=== PATIENT | female | born 1940 | race Caucasian/White ===

== ENCOUNTER 2021-05-30 11:38 | Emergency (ER) | payer MEDICARE, OTHER ==
[~2021-05-30] VITALS: Ht 154.9 cm; Wt 72.6 kg
[~2021-05-30 11:38] MED LIST: ACID CONTROLLER20 MG PO; AMLODIPINE BESYL5 MG PO; DICLOFENAC SODI75 MG PO; HYDROCHLOROTHIA25 MG PO; LIPITOR20 MG; LYRICA100 MG PO; METOPROLOL SUC100 MG PO; PLAVIX75 MG PO
[2021-05-30] MEDS ORDERED: K-TAB ER20 MEQ PO (12:03)
[2021-05-30] MEDS ORDERED: VENTOLIN HFA18 GM INH (12:03)
[2021-05-30] MEDS ORDERED: INDAPAMIDE (12:05)
[2021-05-30] MEDS ORDERED: NITROSTAT0.4 MG SL (12:05)
[2021-05-30] MEDS ORDERED: METFORMIN HCL1000 M1 PO (12:06)
[2021-05-30] MEDS ORDERED: VITAMIN D3125 MC2 PO (12:07)
[2021-05-30] MEDS ORDERED: LIPITOR40 MG PO (12:07)
[2021-05-30] MEDS ORDERED: TORSEMIDE10 MG PO (14:49)
--- NOTE | 2021-05-30 18:44 | EKG ---
[facility] [address] [facility] [place], [place] [address] Signed Normal sinus rhythm Left ventricular hypertrophy with repolarization abnormality Anteroseptal infarct , age undetermined Abnormal ECG No previous ECGs available Confirmed by MIGUEL ANGEL PLAZA DO ([id number]) on 05/30/2021 6:44:33 PM Electronically Signed By: MIGUEL ANGEL PLAZA DO 05/30/21 1844 PATIENT NAME: ADELE GOMES Electrocardiogram DATE OF : 42 PHYSICIAN: MIGUEL ANGEL PLAZA DO REPORT #: [id number] REPORT IS CONFIDENTIAL AND NOT TO BE RELEASED WITHOUT AUTHORIZATION
== END 2021-05-30 15:20 | disposition home or self-care (01) ==
LOC: ED 11:38
DX: I50.9 Heart failure, unspecified (principal); F17.200 Nicotine dependence, unspecified, uncomplicated; Z88.1 Allergy status to other antibiotic agents; Z88.8 Allergy status to other drugs, medicaments and biological substances; Z88.0 Allergy status to penicillin; Z79.899 Other long term (current) drug therapy; Z79.84 Long term (current) use of oral hypoglycemic drugs
CPT/HCPCS: 71045; 80053; 84484; 85025; 93005; 93010; 94640; 96374; 99285-25; J1940

== ENCOUNTER 2021-12-20 14:50 | Emergency (ER) | payer MEDICARE, OTHER ==
[~2021-12-20] VITALS: Ht 154.9 cm; Wt 69.8 kg
[~2021-12-20 14:50] MED LIST changes: +INDAPAMIDE; +K-TAB ER20 MEQ PO; +LIPITOR40 MG PO; +METFORMIN HCL1000 M1 PO; +NITROSTAT0.4 MG SL; +TORSEMIDE10 MG PO; +VENTOLIN HFA18 GM INH; +VITAMIN D3125 MC2 PO
--- NOTE | 2021-12-21 07:22 | EKG ---
[facility] [address] [place], [place] [address] Signed Sinus tachycardia Minimal voltage criteria for LVH, may be normal variant ( Sokolow-Chavez ) Anteroseptal infarct (cited on or before 30-MAY-2021) Abnormal ECG When compared with ECG of 30-MAY-2021 11:43, Questionable change in initial forces of Anterior leads Nonspecific T wave abnormality, worse in Inferior leads Confirmed by MIC LUNDY MD ([id number]) on 12/21/2021 7:22:25 AM Electronically Signed By: MIC LUNDY MD 12/21/21721 PATIENT NAME: ADELE GOMES Electrocardiogram DATE OF : 42 PHYSICIAN: MIC LUNDY MD REPORT #: [id number] REPORT IS CONFIDENTIAL AND NOT TO BE RELEASED WITHOUT AUTHORIZATION
== END 2021-12-20 17:20 | disposition home or self-care (01) ==
LOC: ED 14:50
DX: R07.9 Chest pain, unspecified (principal); I50.9 Heart failure, unspecified; Z87.891 Personal history of nicotine dependence; Z88.1 Allergy status to other antibiotic agents; Z88.8 Allergy status to other drugs, medicaments and biological substances; Z79.899 Other long term (current) drug therapy; Z79.84 Long term (current) use of oral hypoglycemic drugs
CPT/HCPCS: 36415; 71045; 80053; 83735; 84484; 85025; 93005; 93010; 99285-25

== ENCOUNTER 2022-08-25 11:15 | Inpatient (IN) | payer MEDICARE, OTHER ==
[~2022-08-25] VITALS: Ht 154.9 cm; Wt 71.0 kg
[~2022-08-25 11:15] MED LIST changes: -ACID CONTROLLER20 MG PO; -K-TAB ER20 MEQ PO; +K-TAB10 MEQ PO; +PEPCID AC10 MG PO
[2022-08-25] MEDS ORDERED: ADULT LOW DOSE81 MG PO (11:29)
[2022-08-25] MEDS ORDERED: DICLOFENAC SODI75 MG PO (11:31)
[2022-08-25] MEDS ORDERED: CYCLOBENZAPRINE10 MG PO (11:31)
[2022-08-25] MEDS ORDERED: METOPROLOL SUCC50 MG PO (16:04)
[2022-08-25] MEDS ORDERED: FUROSEMIDE20 MG PO (16:04)
[2022-08-25] MEDS ORDERED: METFORMIN HCL500 M1 PO (16:05)
[2022-08-25] MEDS ORDERED: INDAPAMIDE1.25 MG PO (16:05)
--- NOTE | 2022-08-25 16:57 | EKG ---
[facility] [address] [facility] [place] [address] Signed Sinus rhythm with occasional premature ventricular complexes Left ventricular hypertrophy with repolarization abnormality ( Sokolow-Chavez ) Abnormal ECG When compared with ECG of 20-DEC-2021 14:58, premature ventricular complexes are now present Criteria for Anteroseptal infarct are no longer present Confirmed by Keri Lynch MD () on 08/25/2022 4:56:48 PM Electronically Signed By: KERI LYNCH MD 08/25/22 1657 PATIENT NAME: ADELE GOMES Electrocardiogram DATE OF : 42 PHYSICIAN: KERI LYNCH MD REPORT #: [id number] REPORT IS CONFIDENTIAL AND NOT TO BE RELEASED WITHOUT AUTHORIZATION
--- NOTE | 2022-08-25 17:11 | NUR ---
PT ARRIVED FROM ER, SBA TO BSC, VOIDED WITHOUT DIFFICULTY. PT ON 2L NC CHRONIC, LUNG SOUNDS WITH RHONCHI AND WHEEZE THROUGHOUT, PRODUCTIVE COUGH. PT PLACED ON TELE #4, SINUS TACH. IV SALINE LOCKED, FLUSHED, PATENT. CMS INTACT, TRACE EDEMA TO BLE. PT BLOOD GLUCOSE 201, GIVEN 3 UNITS SS INSULIN, DINNER AT BEDSIDE. ADMISSION INTAKE COMPLETED. PT DENIES OTHER NEEDS AT THIS TIME.
--- NOTE | 2022-08-25 18:56 | NUR ---
PT ASSISTED TO BATHROOM AND BACK TO BED. SON AT BEDSIDE. PT DENIES OTHER NEEDS AT THIS TIME.
--- NOTE | 2022-08-25 19:20 | NUR ---
IN PT ROOM FOR SHIFT REPORT. PT A&O X4, ABLE TO MAKE NEEDS KNOWN. PT HAS NO COMPLAINTS OF PAIN OR DISCOMFORT AT THIS TIME. PT CALL LIGHT IN REACH.
--- NOTE | 2022-08-25 20:55 | NUR ---
IN PT ROOM FOR BLOOD DRAW DUE TO LAB BEING UNAVAILABLE. PT RESTING, COMPLIANT WITH BLOOD DRAW. PT RESTING, HEAD ELEVATED, NO COMPLAINT OF PAIN. CALL LIGHT INREACH.
--- NOTE | 2022-08-25 22:28 | NUR ---
CALL LIGHT ANSWERED. PT UP TO BR WITH PERSONAL WALKER AND SBA TO VOID. GAIT STEADY. BACK TO BED, PT WILFRID WELL. DENIES SOB WITH AMB. SpO2 100% ON 2L/NC. HR 90'S. PT C/O DRY NOSE. HUMIDIFIER ADDED TO OXYGEN. NO FURTHER NEEDS. CALL LIGHT IN REACH.
--- NOTE | 2022-08-25 23:12 | NUR ---
IN PT ROOM FOR ROUNDING. PT LAYING ON SIDE, APPEARS TO BE SLEEPING. PT BREATHING EVEN, UNLABORED. PT CALL LIGHT IN REACH, NO SIGN OF PAIN OR DISCOMFORT.
--- NOTE | 2022-08-26 00:27 | NUR ---
IN PT ROOM FOR ROUNDING. PT RESTING ON SIDE, APPEARS TO BE SLEEPING. PT BREATHING IS EVEN AND UNLABORED, NO SIGN OF DISTRESS OR DISCOMFORT. PT CALL LIGHT IN REACH.
--- NOTE | 2022-08-26 01:25 | NUR ---
IN PT ROOM FOR BLOOD DRAW AND ROUNDING. PT RESTING, COMPLIANT WITH BLOOD DRAW AND VITAL SIGNS. PT NOT COMPLAINING OF SOB, O2 SAT AT 98%. PT HAS NO COMPLAINT OF PAIN, CALL LIGHT IN REACH.
--- NOTE | 2022-08-26 01:29 | NUR ---
IN PT ROOM FOR ROUNDING. PT RESTING ON RIGHT SIDE, BREATHING EVEN AND UNLABORED. PT IS NOT SHOWING ANY INDICATIONS OF PAIN OR DISCOMFORT, PT CALL LIGHT IS IN REACH.
--- NOTE | 2022-08-26 02:20 | NUR ---
IN PT ROOM TO REAPPLY TELEMETRY MNODES. PT COMPLIANT, NODES REPLACED, PT ASSISTED TO BATHROOM WITHOUT INCIDENT. PT CALL LIGHT IN REACH, NO COMPLAINT OF PAIN OR DISCOMFORT.
--- NOTE | 2022-08-26 03:46 | NUR ---
IN PT ROOM FOR ROUNDING. PT RESTING, EYES CLOSED, ON LEFT SIDE. PT BREATHING IS EVEN AND UNLABORED. PT SHOWS NO SIGNS OF PAIN OR DISCOMFORT. CALL LIGHT IN REACH
--- NOTE | 2022-08-26 04:58 | NUR ---
IN PT ROOM FOR ROUNDING. PT RESTING ON SIDE, NO SIGNS OF DISTRESS, BREATHING EVEN AND UNLABORED. PT TELEMETRY ON, CALL LIGHT IN REACH.
--- NOTE | 2022-08-26 06:07 | NUR ---
IN PT ROOM FOR ROUNDING, VS, WEIGHT, AND I&O'S. PT IN GOOD SPIRITS, STATES SHE IS "FEELING BETTER" - PT NOTES THAT PRODUCTIVE COUGH CREATES YELLOW SPUTUM OPPOSED TO BROWN PREVIOUSLY. PT HAS NO COMPLAINT OF PAIN OR SOB, CALL LIGHT IN REACH
--- NOTE | 2022-08-26 07:00 | NUR ---
bedside report from dudley springer, daily weight complete, tele 4 sr hr 80, call light in reach
--- NOTE | 2022-08-26 07:59 | NUR ---
PATIENT UP SITTING ON SIDE OF BED FOR MEAL. AM CARE COMPLETED AND ICE WATER GIVEN. PT HAS NO OTHER NEEDS AT THIS TIME. CALL LIGHT WITHIN REACH.
--- NOTE | 2022-08-26 09:44 | NUR ---
PATIENT IN BED AFTER MEAL. VITALS AND I/O'S COMPLETED. PT HAS NO OTHER NEEDS AT THIS TIME. CALL LIGHT WITHIN REACH.
--- NOTE | 2022-08-26 09:58 | NUR ---
IN ROOM WITH DR LYNCH FOR ROUNDS WITH PT.
--- NOTE | 2022-08-26 10:37 | NUR ---
MED REC COMPLETE. PT STATES ALBUTEROL MDI DOESN'T SEEEM TO WORK. A SPACER MAY BENEFIT THIS PT.
[2022-08-26] MEDS ORDERED: TYLENOL325 MG PO (10:47)
[2022-08-26] MEDS ORDERED: METAMUCIL POWD575 GM PO (10:48)
--- NOTE | 2022-08-26 12:50 | NUR ---
iv left side infilterated, dc intact. call to it service continuity supervisor to restart due to pt complaint of difficult iv/lab draw experinces last night. pt reports she is a very hard stick and they had trouble last night.
--- NOTE | 2022-08-26 14:41 | NUR ---
PATIENT SITTING UP ON SIDE OF BED. FAMILY IN ROOM. VITALS AND I/O'S COMPLETED, PT HAS NO OTHER NEEDS AT THIS TIME. CALL LIGHT WITHIN REACH.
--- NOTE | 2022-08-26 15:11 | NUR ---
this rn visited with dr narayanan in person about hr 110 on tele and updated on pt status.
--- NOTE | 2022-08-26 16:00 | NUR ---
THIS RN TRINH LAB FROM IV PER PT REQUEST WITH LAB PRESENT, WASTED BEFORE DRAW AND PULSATED FLUSH AFTER. RESULTS TO CHART - NOTE TO
--- NOTE | 2022-08-26 17:45 | NUR ---
PT ATE DINNER WELL DENIES NEEDS - AWARE OF CHANGE OF SHIFT 7-730 PM AND WILL INTRO NEW RN, THIS RN CALLED CASE MANAGMENT LEFT MESSAGE FOR PT REQUEST WITH HELP ON ADVANCE DIRECTIVE AND NEED FOR A NOTERY, PER PT REQUEST.
--- NOTE | 2022-08-26 17:50 | NUR ---
PATIENT SITTING ON SIDE OF BED. VITALS AND I/O'S COMPLETED. ICE WATER GIVEN. PT HAS NO OTHER NEEDS AT THIS TIME. CALL LIGHT WITHIN REACH.
--- NOTE | 2022-08-26 20:32 | NUR ---
PT ON 2LNC, CHRONIC AT HOME, MOIST PRODUCTIV E COUGH PRESENT, UP TO BR, DID OWN CARE, VOIDED, BACK TO BED, C/O CONSTIPATION, NIO FOR BOWEL REGIMEN STATRTED. PT STAES SHE RATHER JUST HAVE THE MIRALAX SHE TAKES METAMUCIL AT HOME WHICH SHE PREFERS BUT IS CURRENTLY UNAVAILABLE AT THIS TIME OF NIGHT. STATED MIRALAX IS JUST FINE. TELE#[address] TACHYCHARDIC, DENIES CP, SLIGHT SOB WITH EXERTION AND INCREAED TACHYCHARDIA NOTED WHEN UP TO BR AND DOING OWN SELF CARE. AMBULATIN IN ROOM INDEPENDENT. USES CALL LIGHT, TOLERATING LIQUIDS WELL, NO C.O N/V. CBG 173 WILL RECEIVE 1 UNITS INSULIN
--- NOTE | 2022-08-26 21:39 | NUR ---
c/o back of head pain.stiffness from laying down. medicated with Tylenol 650mg pt received Toprol and Lipitor, med ed done, pt states this are meds she takes at home, semireceptive for med teaching. Repositions self in bed Tele#[address], tachychardic at 121 at this time denies CP
--- NOTE | 2022-08-26 22:49 | NUR ---
PT 2LNC, TELE#[address], EYES CLOSED, NO DISTRESS, TURNS AND REPOSITIONS SELF IN BED, PULSE 95, RESP 16 AT THIS TIME
--- NOTE | 2022-08-27 01:18 | NUR ---
Pt sitting edge of bed, O2 2LNC inplace, denies sob or CP. tele#[address] SR w SVPB's. ambulated to br and back to sitting position in bed. pulse 84. call light and fluids at hands reach
--- NOTE | 2022-08-27 02:34 | NUR ---
Pt awake, walking in room, denies sob or CP, tele#[address] SR w SVPB's O2 2LNC. moving from bed to chair and back, tolerating well, fresh fluids given. legs dependent position . c/o edema to LE specially L leg. trace edema ankles to feet noted. encouraged to elevate legs. "I have not slept much tonight, Leif worried about my dog, the person who was suppossed to take care of him did not, so I had words with that person". listened to her and reassured. calmer. Coop with assessments
--- NOTE | 2022-08-27 04:41 | NUR ---
Pt has been awake off and on this shift, independent in room, voiding small amunts of urine, no bm this shift. On 2LNC, chronic use, sats WNL. Lungs dim at bases were coarse at begiining of shift. moist occassionally productive cough present. tele#[address] initial rhythm was ST/SVPB's, received Toprol as per orders, current rhythm SR w occassional SVPB's, denies c/o cp or SOB no sob noted with exertion, ambulating in room. independent. pleasant and cooperative. Very anxious at begining of shift, resolved. Ultrasound guided SL QIAN patent. bruising arms from old iv sites. tolerating liquids well. CBG w ss insulin.
--- NOTE | 2022-08-27 07:30 | NUR ---
THIS RN RECEIVED SHIFT REPORT FROM HARDY MONTENEGRO. PATIENT SITTING ON THE EDGE OF HER BED QUIETLY LOOKING OUT THE WINDOW. PATIENT HAS NO NURSE CARE NEEDS AT THIS TIME. CALL LIGHT IS IN REACH.
--- NOTE | 2022-08-27 07:30 | NUR ---
THIS RN RECEIVED SHIFT REPORT FROM HARDY MONTENEGRO. PATIENT RESTING QUIETLY IN BED, RESPIRATIONS ARE REGULAR AND EVEN, AND CALL LIGHT IS IN REACH. PATIENT HAS NO NURSE CARE NEEDS AT THIS TIME.
--- NOTE | 2022-08-27 07:32 | NUR ---
PT SITTING AT EDGE OF BED. BS TAKEN. RN NOTIFIED. I ASKED PT IF SHE WANTED ASSISTANCE TO THE CHAIR AND SHE DECLINED. NO FURTHER NEEDS. CALL LIGHT WITHIN REACH.
--- NOTE | 2022-08-27 08:40 | NUR ---
THIS RN IN TO SEE PATIENT AND AM ASSESSMENT COMPLETE. LUNGS ARE COARSE THROUGHOUT WITH EXP WHEEZES IN THE BILAT BASES. FLEXARIL PRN GIVEN FOR BACK SPASMS. PATIENT CONTINUES TO EAT BREAKFAST AND JUST CAME IN TO TALK TO PATIENT. PATIENT HAS NO OTHER CARE NEEDS AT THIS TIME. CALL LIGHT IS IN REACH.
--- NOTE | 2022-08-27 09:09 | NUR ---
PT SITTING UP IN BED. VITALS AND IS AND OS COMPLETE. NO FURTHER NEEDS. CALL LIGHT WITHIN REACH.
[2022-08-27] MEDS ORDERED: CEFDINIR300 MG PO (13:57)
[2022-08-27] MEDS ORDERED: BENZONATATE200 MG PO (13:58)
[2022-08-27] MEDS ORDERED: AEROCHAMBER MV1 EACH MISC (14:39)
--- NOTE | 2022-08-27 14:48 | NUR ---
PATIENT DC'D TO HOME IN DAUGHTERS CARE. IV DC'D INTACT. FLU SHOT GIVEN. VS STABLE. PATIENT LEFT ON HER HOME PORTABLE O2 AT 2L/NC. PATIENT AND DAUGHTER VERBALIZED UNDERSTANDING TO ALL, DC, F/U, MEDICATION, AND HOME CARE INSTRUCTIONS. PHARMACY WENT OVER MEDS AND GOT PATIENT A SPACER FOR HER INHALER. JAVY WEI TOOK PATIENT OUT TO DAUGHTERS CAR IN , BUT PATIENT IS AMBULATORY WITH WALKER.
== END 2022-08-27 14:48 | disposition home or self-care (01) | DRG 871 ==
LOC: ED 11:15 → MS 15:27
PROVIDERS: ADMIT Family Medicine; ATTEND Family Medicine
DX: A41.9 Sepsis, unspecified organism (principal); J13 Pneumonia due to Streptococcus pneumoniae; J96.01 Acute respiratory failure with hypoxia; E87.1 Hypo-osmolality and hyponatremia; Z20.822 Contact with and (suspected) exposure to COVID-19; R65.20 Severe sepsis without septic shock; E11.9 Type 2 diabetes mellitus without complications; R79.89 Other specified abnormal findings of blood chemistry; I50.9 Heart failure, unspecified; M85.80 Other specified disorders of bone density and structure, unspecified site; Z87.891 Personal history of nicotine dependence; Z90.10 Acquired absence of unspecified breast and nipple; Z98.1 Arthrodesis status; Z88.1 Allergy status to other antibiotic agents; Z88.8 Allergy status to other drugs, medicaments and biological substances; Z79.82 Long term (current) use of aspirin; Z79.84 Long term (current) use of oral hypoglycemic drugs; Z79.899 Other long term (current) drug therapy
CPT/HCPCS: 36415; 71045; 80048; 80053; 81001; 83605; 83735; 83880; 84300; 84484; 85025; 85060; 87449; 87899; 93005; 93010; 94640; 96374; 96375; 99285-25; A9270; C9803; J0456; J0696; J1100; J1650; J1815; J1940; J7030; J7060; U0003

== ENCOUNTER 2023-10-11 15:14 | Emergency (ER) | payer MEDICARE, OTHER ==
[~2023-10-11] VITALS: Ht 152.4 cm; Wt 70.6 kg
[~2023-10-11 15:14] MED LIST changes: +ADULT LOW DOSE81 MG PO; +AEROCHAMBER MV1 EACH MISC; +BENZONATATE200 MG PO; +CEFDINIR300 MG PO; +CYCLOBENZAPRINE10 MG PO; +FUROSEMIDE20 MG PO; +GABAPENTIN100 MG PO; +INDAPAMIDE1.25 MG PO; +METAMUCIL POWD575 GM PO; +METFORMIN HCL500 M1 PO; +METOPROLOL SUCC50 MG PO; +TYLENOL325 MG PO
[2023-10-11 16:00] LABS: BASOPHILS 0.6 % (0-2); EOSINOPHILS 0.9 % (0-6); HEMATOCRIT 37.7 % (35.0-50.0); HEMOGLOBIN 12.4 g/dL (12.0-18.0); LYMPHOCYTES 6.1 % (24-44); MCH 30.2 (27-36); MCHC 32.9 g/dl (30-36); MCV 91.9 fl (81-99); MONOCYTES 5.5 % (0-12); NEUTROPHILS 86.9 % (39-80); PLATELET COUNT 187 K/uL (140-440); RDW 17.3 (10.5-15.0)
[2023-10-11 16:21] LABS: ALBUMIN 3.6 g/dL (3.4-5.0); ALBUMIN/GLOBULIN RATIO 1.09 (1.1-2.4); ANION GAP 15.3 (7-21); BILIRUBIN, TOTAL 0.5 ng/dL (0.2-1.0); BUN/CREATININE RATIO 20.68 (6.0-28.6); CALCIUM 9.6 mg/dL (8.5-10.1); CREATININE, SERUM 1.74 mg/dL (0.55-1.02); POTASSIUM 4.3 mmol/L (3.5-5.1); PROTEIN, TOTAL 6.9 g/dL (6.4-8.2)
--- NOTE | 2023-10-11 17:40 | EKG ---
[facility] [address] [facility] [place] [address] Signed Normal sinus rhythm Left ventricular hypertrophy with repolarization abnormality ( Sokolow-Chavez , [place] product ) Cannot rule out Septal infarct , age undetermined Abnormal ECG When compared with ECG of 15-JUN-2023 11:43, IA interval has decreased Confirmed by NICOLAS LIAO MD ([id number]) on 10/11/2023 5:40:17 PM Electronically Signed By: NICOLAS LIAO 10/11/23 1740 PATIENT NAME: ADELE GOMES Electrocardiogram DATE OF : 42 PHYSICIAN: NICOLAS LIAO REPORT #: [id number] REPORT IS CONFIDENTIAL AND NOT TO BE RELEASED WITHOUT AUTHORIZATION
[2023-10-11 18:49] VITALS: BP 89/52
== END 2023-10-11 18:49 | disposition home or self-care (01) ==
LOC: ED 15:14
PROVIDERS: Emergency Medicine
DX: R55 Syncope and collapse (principal); I50.9 Heart failure, unspecified; J44.9 Chronic obstructive pulmonary disease, unspecified; Z87.891 Personal history of nicotine dependence; Z88.1 Allergy status to other antibiotic agents; Z88.8 Allergy status to other drugs, medicaments and biological substances; Z79.02 Long term (current) use of antithrombotics/antiplatelets; Z79.82 Long term (current) use of aspirin; Z79.84 Long term (current) use of oral hypoglycemic drugs; Z79.899 Other long term (current) drug therapy
CPT/HCPCS: 36415; 71045; 80053; 83735; 84484; 85025; 93005; 93010; 99285-25

== ENCOUNTER 2024-05-07 17:31 | Emergency (ER) | payer MEDICARE, OTHER ==
[~2024-05-07 17:31] MED LIST changes: +CARVEDILOL12.5 MG PO; +DOXYCYCLINE HY100 MG PO; +FAMOTIDINE10 MG PO; +POTASSIUM CHLO10 MEQ PO
[2024-05-07] MEDS ORDERED: FAMOTIDINE 20 MG/ 2 ML VIAL IV ONE (19:00)
[2024-05-07 19:07] LABS: BASOPHILS 0.1 % (0-2); EOSINOPHILS 0.1 % (0-6); HEMATOCRIT 35.7 % (35.0-50.0); HEMOGLOBIN 11.1 g/dL (12.0-18.0); LYMPHOCYTES 1.7 % (24-44); MCH 26.2 (27-36); MCHC 31.1 g/dl (30-36); MCV 84.4 fl (81-99); MONOCYTES 2.9 % (0-12); NEUTROPHILS 95.2 % (39-80); PLATELET COUNT 144 K/uL (140-440); RBC 4.23 M/ul (4.3-5.7); RDW 23.6 (10.5-15.0)
[2024-05-07 19:30] LABS: ALBUMIN 2.7 g/dL (3.4-5.0); ALBUMIN/GLOBULIN RATIO 0.69 (1.1-2.4); BILIRUBIN, TOTAL 0.8 ng/dL (0.2-1.0); BUN/CREATININE RATIO 26.31 (6.0-28.6); CALCIUM 9.8 mg/dL (8.5-10.1); CREATININE, SERUM 2.47 mg/dL (0.55-1.02); PROTEIN, TOTAL 6.6 g/dL (6.4-8.2)
[2024-05-07 19:35] LABS: TSH, 3RD GENERATION 5.628 uIU/mL (0.358-3.740)
[2024-05-07] MEDS ORDERED: CALCIUM CHLORIDE 1,000 MG/10 ML SYR IV ONE (19:45)
[2024-05-07] MEDS ORDERED: ALBUTEROL SULFATE 0.5% 2.5 MG/0.5 ML VIAL INH ONE (19:45)
[2024-05-07] MEDS ORDERED: FUROSEMIDE 40 MG/4 ML VIAL IV ONE (19:45)
[2024-05-07] MEDS ORDERED: ALBUTEROL SULFATE 0.5% 2.5 MG/0.5 ML VIAL ONE (20:12)
[2024-05-07 20:58] LABS: BILIRUBIN, URINE NEGATIVE (negative); BLOOD/HGB, URINE NEGATIVE (Negative); KETONE, URINE NEGATIVE (Negative); LEUK ESTERASE, URINE NEGATIVE (negative); NITRITE, URINE NEGATIVE (negative)
[2024-05-07] MEDS ORDERED: ondansetron HCL 4 MG/2 ML VIAL IV ONE (21:00)
[2024-05-07] MEDS ORDERED: CEFEPIME HCL/D5W 1 GM/100 ML PIGGYBACK IV ONE (22:00)
[2024-05-07 22:30] VITALS: BP 104/67
[2024-05-07 22:34] LABS: ANION GAP 17.1 (7-21); BUN/CREATININE RATIO 30.34 (6.0-28.6); CALCIUM 12.2 mg/dL (8.5-10.1); CREATININE, SERUM 2.34 mg/dL (0.55-1.02); POTASSIUM 6.1 mmol/L (3.5-5.1)
[2024-05-08 13:05] LABS: LACTIC ACID, BLOOD 2.8 mmol/L (0.4-2.0)
--- NOTE | 2024-05-11 09:20 | EKG ---
[facility] [address] [facility] [place], [place] [address] Signed Normal sinus rhythm Left ventricular hypertrophy with repolarization abnormality ( [place] product ) Cannot rule out Septal infarct , age undetermined Abnormal ECG When compared with ECG of 17-OCT-2023 11:36, No significant change was found Confirmed by Sandeep Aponte ([id number]) on 05/08/2024 1:11:55 PM Electronically Signed By: SANDEEP APONTE MD 05/11/24 0920 PATIENT NAME: ADELE GOMES Electrocardiogram DATE OF : 42 PHYSICIAN: SANDEEP APONTE MD REPORT #: [id number] REPORT IS CONFIDENTIAL AND NOT TO BE RELEASED WITHOUT AUTHORIZATION
== END 2024-05-07 22:55 | disposition short-term general hospital (02) ==
LOC: ED 17:31
PROVIDERS: Internal Medicine
DX: K63.1 Perforation of intestine (nontraumatic) (principal); I50.9 Heart failure, unspecified; J44.9 Chronic obstructive pulmonary disease, unspecified; Z87.891 Personal history of nicotine dependence; Z88.8 Allergy status to other drugs, medicaments and biological substances; Z79.82 Long term (current) use of aspirin; Z79.84 Long term (current) use of oral hypoglycemic drugs; Z79.899 Other long term (current) drug therapy
CPT/HCPCS: 36415; 71045; 74176; 80048; 80053; 81003; 82553; 83605; 83690; 83880; 84443; 84484; 85025; 85060; 93005; 93010; 94644; J0692; J1940; J2405